=== PATIENT | female | born 1970 | race Caucasian/White ===

== ENCOUNTER → 2021-08-02 10:16 | Outpatient (BNVA) | payer OTHER, SELFPAY | PROVIDERS: PCP Internal Medicine; Visit Provider Physician Assistant ==

== ENCOUNTER → 2021-08-09 09:00 | Outpatient (REF) | payer OTHER, SELFPAY ==
--- NOTE | ~2021-08-09 | NM_ITS ---
Exercise Myocardial perfusion study Indication: Shortness of breath evaluate for myocardial ischemia Technique: The patient was brought in for an exercise perfusion study on 08/09/2021.. Patient performed exercise as per [place] protocol and was injected 35 mCi of sestamibi was given intravenously one target HR was achieved. Images were obtained using the SPECT gamma camera interlaced with the gating device. Images were obtained in supine position. Resting perfusion study was performed on 08/11/2021. Patient was administered 35 mCi of sestamibi intravenously at rest. Images were then obtained in supine position. Images obtained with and without CT attenuation. Total DLP 125 mGy-cm. Images were processed with the software and compared side to side in short axis, horizontal long axis and vertical long axis views. Findings: Reviewing the raw tomographic images there appears shifting breast attenuation shadow on non attenuated images when compared between rest and stress perfusion study The stress perfusion study showed non attenuated images show mildly to moderately reduced uptake in the anterior wall, the anterolateral wall as well as distal lateral wall of the LV myocardium. Other segments of LV myocardium is normal uptake. Attenuation corrected images show mildly reduced uptake in the apex. The gated study shows normal LV systolic function with calculated LVEF of 58%. LV cavity is normal in size. The gated study shows normal systolic wall thickening and contraction of all segments. There is no transient ischemic dilation. Resting study shows attenuated corrected images show mildly reduced uptake in the apex of the LV myocardium.. Gating at rest reveals normal systolic wall motion with ejection fraction at 55%. The findings are consistent with [no evidence of ischemia on attenuated corrected images. NM/NM jazmyn perf SPECT rest & str Impression: 1. Normal myocardial perfusion 2. Gated LVEF is 58% 3. Transient ischemic dilatation not present Stress EKG is nondiagnostic for ischemia
--- NOTE | 2021-08-09 09:21 | CA_ITS ---
Acquisition Time: 2021-08-09 09:36:36 Total Exercise Time: 00:05:13 Test Indications: Chest Pain Medications: PANTOPRAZOLE ATORVASTATIN ASA Protocol: VERNA Max HR: 157 BPM 92% of Pred: 169 BPM Max BP: 182/070 mmHG Max Work Load: 7.0 METS Exercise stress test with exercise 5 min 13 sec of Verna protocol, with fatigue and mild to moderate shortness of breath, no chest discomfort, without arrythmia, with normotensive response to exercise, with nondiagnostic EKG for ischemia due to baseline ST/ T wave abnormality. Nuclear images pending. Test reviewed with Dr Boudreaux. Referred By: Chaim Alarcon Overread By: DEVORAH RICH
== END ==
LOC: HO.CARD 09:00
PROVIDERS: Visit Provider Physician Assistant Medical
DX: R06.02 Shortness of breath (principal)
CPT/HCPCS: 78452; 93017; A9500

== ENCOUNTER → 2021-09-02 08:13 | Outpatient (BNVA) | payer OTHER, SELFPAY | PROVIDERS: PCP Internal Medicine; Visit Provider Surgery | DX: Z13.89 Encounter for screening for other disorder (principal) ==

== ENCOUNTER 2023-01-23 13:29 | Outpatient (AMB) | payer OTHER, SELFPAY ==
--- NOTE | 2023-01-23 13:31 | A.OFFVIS_ITS ---
Intake VS Expanded 01/23/23 13:33 Height 4 ft 11 in Weight 218 lb 9.6 oz BMI 44.1 BP 146/70 H Blood Pressure Location Rt brachial Blood Pressure Position Sitting Pulse 90 Pulse Source Pulse Oximeter Temp 97.4 F Temperature Source Temporal Artery Scan Pulse Oximetry 98 Oxygen Delivery Method Room Air Body Fat 100.4 Body Fat Percentage 45.9 Free Fat Mass 118.2 Muscle Mass 112.2 Visceral Mass 15.0 Water Mass 84.0 BMR 1,661 Intake Visit Reasons: (OV) Re-Est [facility] Assistant Manager/Embalmer Required: Yes Assistant Manager/Embalmer Name: office cmi Allergies lorazepam [From Ativan] Allergy (Severe, Verified 09/02/21 10:49) Unconscious Medication List - Last Reconciled 01/23/23 by TAZ Ziegler albuterol sulfate 90 mcg/actuation 0 mcg inhalation ibuprofen 800 mg PO TID pantoprazole 40 mg PO DAILY HPI HPI Comments History of Present Illness Details Pt is here to re-start the [facility] Weight Management surgical weight loss program. She was seen only once in the [facility] clinic 09/02/21 and her weight at that time was 206.2 pounds with a BMI of 41. She was unable to continue in the program at that time due to having to move and multiple stresses that have since improved. Her goal is to lose weight and achieve a healthy lifestyle. Current weight is 218.6 pounds with a BMI of 44.2. She has tried multiple methods of weight loss including fad diets without permanent results. Works at [employer]. She wakes at:?1 am, and goes to bed at?9 pm. Dinner is at 6pm. Breakfast: gatorade AM snack: green tea, bagel w cream cheese Lunch: fast food summer strawberry salad PM snack: sandwich Dinner: nothing else After dinner: none Other snacks: none Liquids: 48-64 oz water, 40 oz straw-watermelon green tea from , Alcohol/marijuana/tobacco intake: none Exercise: none, belongs to [employer] in [facility] Medical History Asthma Foot pain GERD (gastroesophageal reflux disease) Morbid obesity Surgical History Hx of tubal ligation Family History Mother Hypertension Father Diabetes Stroke Sister No problems noted. Sister Cancer Diabetes Brother Fibromyalgia Sister No problems noted. Daughter No problems noted. Daughter Cancer Hypertension Heart problem Kidney problem Son No problems noted. Social History Alcohol intake: never Patient Tobacco Use Status: Never used Tobacco Review of Systems Const All systems reviewed & are unremarkable except as noted in HPI and below Physical Exam Const General: cooperative, healthy appearing and no acute distress Orientation/consciousness: patient oriented x3 HEENT Head: Yes normal to inspection Ears: hearing grossly normal bilaterally General nose exam: Normal external nose present Face and sinus: Yes normal facial exam Eyes General: appearance normal, both eyes and all related structures Resp Effort & Inspection: normal respiratory effort Auscultation: clear to auscultation bilaterally Cardio Rate: regular rate Rhythm: regular rhythm Heart sounds: S1 normal heart sound present and S2 normal heart sound present GI Inspection: Yes normal to inspection, No distended and Yes obesity Palpation (GI): Soft to palpation, nontender and no guarding Auscultation: normal bowel sounds Skin General skin exam: no rashes or lesions noted Neuro General: patient oriented x3 Extrem General: No edema Psych Appearance: grossly normal Mental Status: mental status grossly normal Speech and movement: Normal speech and movement present Affect: normal affect Attitude: cooperative Assessment & Plan Assessment & Plan (1) Morbid obesity: Code(s): E66.01 - Morbid (severe) obesity due to excess calories Plan: This is a?52 yo female who will re-start our SWL program to prepare for bariatric surgery.? Blood work, h pylori , CXR, ECG, Abd US and UGI have been ordered. She is being scheduled for RD and BH initial consultations. She will start SWL classes and watch the first three videos before her next appointment. ? Awakening at 1 am and going to bed at 9 pm ? Purchase body composition analyzer scale (Janette bahena or Arjun recommended) and check weight weekly. The best time to do this is first thing in the morning after going to the bathroom. 1. Nutritional counseling: Be sure to careful read the number of scoops per shake Start with 3 Orgain shakes ([employer], [employer], [employer]), First shake, (1 and 1/2 scoop in 8 oz low fat unsweetened almond milk or water) at 2am-4am, Second shake (1 scoop in 8 oz unsweetened almond milk or water) at 6am-8am 1 protein bar (Fulfilbars at [employer], [employer], or [employer]) at 10am-12pm. Another shake with 1 scoop in 8 oz unsweetened almond milk at 2pm-4pm. Dinner at 6pm (8 forks of protein and 8 forks of salad/vegetables). Meal to include lean meat (beef, fish, pork, turkey, chicken), cooked vegetables or a salad with olive oil and/or fruits (berries, pears, apples, kiwi). Avoid salt, breads, potatoes, rice, pasta, desserts. Try to drink 64 oz of water daily and avoid soda and juices. ?2. Each shake would be drunk slowly, like coffee in a period of 2 hours. ?3. Cut each bar in 4 pieces and eat each piece in 30 min ?to make each bar last 2 hours. ?4. I emphasized the importance of measuring accurately the food portion and measure it carefully when serving the food on the plate ?5. The meal portions include 8 full-size forks of meat and 8 full-size forks of salad. You always eat the meat portion but you can replace up to half of the forks of salad/vegetables with rice, potatoes or pasta, or a fruit ?if you like. The less you do it the better weight loss will be. ?6. One full-size fork is what can be scooped on the fork without falling aside and not what can be bit with the fork. Use regular forks like those you find in a typical restaurant. ?7.? Please send me weight measurements as soon as possible and then once a week. Always include your diet and exercise plan. Alternatively come weekly at the office for weight checks and send me the measurements. ?8. Exercise counseling: Begin by watching a stretching for beginners video. Start slowly and begin to stretch your muscles. You should do this before and after each exercise session to prevent injury. Please continue to go to [facility] gym near your home. Ask the supply chain manager or one of the trainers how to use the machines if you are unfamiliar with them. Start elliptical with a resistan ce of 2. Increase resistance by 1 every 3 min to your most comfortable resistance with a max resistance of 8. Reduce the resistance by 1 every 3 minutes back down to 2 and repeat cycles for 300 calories. Alternatively, start treadmill with a speed of 3.0 and incline of 0, increasing incline by 1 every 3 minutes to the highest comfortable level (max 6 for now) then decrease in the same fashion. Repeat process to a goal of 300 calories. Goal of 2000 calories burned or more weekly. You may also consider use of the stationary bike. The easiest would be to chose the fat-burn or interval training program on the machine and do this until you reach the 300 calorie goal. Alternatively, you can manually adjust the resistance in a similar fashion as mentioned above, (resistance of 2-8 with a goal speed of 12 mph). Tracking calories is essential. 9. Alternatively start walking outside daily, tracking calories with a goal of 300 calories per day, daily. You can download the susi Swrve which can track your time, distance and calories while walking outside. You press start in the susi when you start and then stop when you are finished. 10.? It is important to communicate by text weekly your weight and if you are having any problems with the plans 11. Please get labs, EKG and chest X-Ray within 1 week. 12. Discussed and answered all questions regarding?obtained consent to participate in the [facility]?Registry. 13. Please follow the diet plan exactly, without any change. If you do not like something about the plan or you feel hungry, you need to communicate with me so I can help you revise the plan. You should not change the plan yourself. Text me at [phone] 14. Goal is to lose at least 12 pounds in the first month 15. Goal is to lose 10% of your weight before surgery, which is about 22 lbs. Ultimate weight goal: 196 lbs before surgery Patient is morbidly obese and is not considered stable at this time.?I spent a total of 70 minutes reviewing/updating records, examining the patient and counseling the patient on weight management as detailed above. Orders: Orders Vitamin B12 and Folate Today E66.01 - Morbid (severe) obesity due to excess calories Comprehensive Met. Panel Today E66.01 - Morbid (severe) obesity due to excess calories C Reactive Protein Today E66.01 - Morbid (severe) obesity due to excess calories Ferritin Today E66.01 - Morbid (severe) obesity due to excess calories Hemoglobin A1c Today E66.01 - Morbid (severe) obesity due to excess calories Insulin Today E66.01 - Morbid (severe) obesity due to excess calories IRON PROFILE Today E66.01 - Morbid (severe) obesity due to excess calories Lipid Panel Today E66.01 - Morbid (severe) obesity due to excess calories PTHI Today E66.01 - Morbid (severe) obesity due to excess calories TSH reflex Free T4 Today E66.01 - Morbid (severe) obesity due to excess calories Vitamin A Today E66.01 - Morbid (severe) obesity due to excess calories Vitamin B1 Today E66.01 - Morbid (severe) obesity due to excess calories Vitamin D 25-OH Total Today E66.01 - Morbid (severe) obesity due to excess calories Zinc Today E66.01 - Morbid (severe) obesity due to excess calories ECG 12 lead EKG Today E66.01 - Morbid (severe) obesity due to excess calories FL upper GI w air Today E66.01 - Morbid (severe) obesity due to excess calories Complete Blood Count Auto Diff Today E66.01 - Morbid (severe) obesity due to excess calories H Pylori Breath Test Today E66.01 - Morbid (severe) obesity due to excess calories US abdomen comp w elastography Today E66.01 - Morbid (severe) obesity due to excess calories XR chest 2V Today E66.01 - Morbid (severe) obesity due to excess calories Referrals Behavioral Health Referral E66.01 - Morbid (severe) obesity due to excess calories Nutrition/Dietitian Referral E66.01 - Morbid (severe) obesity due to excess calories Coding Level of Care Code Est Pt Level 5 (72944) Diagnoses Morbid obesity E66.01 Time Spent (min) 70
[2023-01-23 13:33] VITALS: BP 146/70; PULSE 90; TEMP 36.3; O2SAT 98; BMI 44.1
== END 2023-01-23 14:23 | disposition home or self-care (01) ==
PROVIDERS: PCP Internal Medicine; Visit Provider Physician Assistant Surgical
DX: E66.01 Morbid (severe) obesity due to excess calories (principal); Z68.41 Body mass index [BMI] 40.0-44.9, adult
CPT/HCPCS: 99215

== ENCOUNTER → 2023-01-23 13:29 | Outpatient (BNVA) | payer OTHER, SELFPAY | PROVIDERS: PCP Internal Medicine; Visit Provider Physician Assistant Surgical ==

== ENCOUNTER 2023-02-12 10:18 | Outpatient (AMB) | payer OTHER, SELFPAY ==
--- NOTE | 2023-02-12 10:03 | MHC.AMNUTRGE ---
Intake Intake Visit Reasons: (TV) Initial Nutrition SWL Concrete Finishing Machine Operator Required: Yes Concrete Finishing Machine Operator Name: Cedric [id number] Information Interpreted: non-clinical & clinical Allergies lorazepam [From Ativan] Allergy (Severe, Verified 09/02/21 10:49) Unconscious HPI Nutrition Presentation Details Todays wildlife policy professional was not thorough with interpretation Reason for consult elevated BMI Diet Assmnt Details 2 shakes - orgain powder 2 scoops 2 bars 1 meal protein, vegetables, portions not clear due to poor interpretation Exercise: walking outside , only sometimes, not sure how often , 30 minutes - 1 hour SWL online classes: none, pt states she was unaware Dietary counseling reduction Diagnosis Nutrition problem #1 overweight/obesity As related to (etiology) #1 excess energy intake and physical inactivity As evidenced by (sign/symptom) #1 high BMI Monitoring/Goals Nutrition problem monitoring total energy intake, level of knowledge/skill, total PRO intake, total CHO intake and weight Outcome progress not met Learning/Education Readiness to learn fair Stages of change action Most Recent Diabetes Results: No Data to Display [facility] Medical History Asthma Foot pain GERD (gastroesophageal reflux disease) Morbid obesity Surgical History Hx of tubal ligation Family History Mother Hypertension Father Diabetes Stroke Sister No problems noted. Sister Cancer Diabetes Brother Fibromyalgia Sister No problems noted. Daughter No problems noted. Daughter Cancer Hypertension Heart problem Kidney problem Son No problems noted. Social History Alcohol intake: never Patient Tobacco Use Status: Never used Tobacco Assessment & Plan Assessment & Plan (1) Morbid obesity: Code(s): E66.01 - Morbid (severe) obesity due to excess calories Patient Instructions: will follow up again once she completes her online classes. F/u in 5 weeks Telehealth Telehealth Location of provider rendering services: practice address Location of patient: address on file Patient Identification confirmed using: Name, : Yes Telehealth method: voice only Patient verbally consented to treatment: Yes Patient verbally consented to billing insurance company: Yes Patient informed of any privacy concerns related to visit: Yes Minutes spent on Phone/Video with Pt.: 30 Coding Level of Care Code Nutr Indiv Intake (04797) Diagnoses Morbid obesity E66.01 Time Spent (min) 30
== END 2023-02-12 10:23 | disposition home or self-care (01) ==
LOC: HO.HBS 10:18
PROVIDERS: PCP Internal Medicine; Visit Provider Dietitian, Registered
DX: E66.01 Morbid (severe) obesity due to excess calories (principal)

== ENCOUNTER → 2023-02-12 10:18 | Outpatient (BNVA) | payer OTHER, SELFPAY | PROVIDERS: PCP Internal Medicine; Visit Provider Dietitian, Registered | DX: E66.01 Morbid (severe) obesity due to excess calories (principal); Z71.3 Dietary counseling and surveillance | CPT/HCPCS: 97802 ==

== ENCOUNTER 2023-04-19 16:34 | Outpatient (REF) | payer OTHER, SELFPAY ==
--- NOTE | ~2023-04-19 | XR_ITS ---
EXAMINATION: XR CHEST CLINICAL INFORMATION: Obesity COMPARISON: None available. TECHNIQUE: 2 views of the chest were obtained. FINDINGS: No significant abnormality is noted involving the heart, lungs, mediastinum, bony thorax or soft tissues. Degenerative changes of the spine. XR/XR chest 2V IMPRESSION: No evidence for acute disease in the chest.
== END 2023-04-19 16:35 | disposition home or self-care (01) ==
LOC: HO.XRAY 16:34
PROVIDERS: Visit Provider Physician Assistant Surgical
DX: E66.01 Morbid (severe) obesity due to excess calories (principal)
CPT/HCPCS: 71046

== ENCOUNTER 2023-04-26 08:42 | Outpatient (REF) | payer OTHER, SELFPAY ==
--- NOTE | ~2023-04-26 | US_ITS ---
EXAMINATION: US COMPLETE ABDOMEN WITH LIVER ELASTOGRAPHY CLINICAL INFORMATION: Morbid obesity. COMPARISON: None available. TECHNIQUE: Real-time imaging of the abdominal viscera. Noninvasive ultrasound liver fibrosis assessment is performed using Nati ElastPQ point quantification shear wave elastography (2D-SWE) with a C5-2 MHz transducer. Multiple elastography samples are obtained. FINDINGS: PANCREAS: Normal. The visualized pancreatic head and body are normal in appearance. The remainder of the pancreas is obscured from visualization by the overlying bowel gas. ABDOMINAL AORTA: The proximal, middle, and distal aortic segments are normal in caliber. INFERIOR VENA CAVA: Visualized portions are normal. LIVER: The liver demonstrates normal size, contour and generally increased echogenicity. No focal lesion or intrahepatic biliary duct dilatation. The right lobe measures 16.2 cm in length. The left lobe measures 11.3 cm in length. Portal flow is towards the liver (hepatopetal). Shear wave liver elastography median stiffness is 1.21 m/s (reference: normal median stiffness is 1.3 m/s or less). IQR/median stiffness to assess sampling precision is 0.12 (reference: good quality data set is IQR/median stiffness of 0.15 or less). GALLBLADDER: Normal. The gallbladder is physiologically distended without evidence of stones, sludge, polyps, wall thickening or pericholecystic fluid. COMMON BILE DUCT: Normal in caliber measuring 0.6 cm in diameter. RIGHT KIDNEY: Normal. There is mild pelviectasis, without charan hydronephrosis. No renal calculi or focal parenchymal lesions. The kidney measures 10.7 cm in maximum dimension. LEFT KIDNEY: Normal. There is mild pelviectasis, without charan hydronephrosis. No renal calculi or focal parenchymal lesions. The kidney measures 10.2 cm in maximum dimension. SPLEEN: Normal. The spleen measures 9.9 cm in maximum dimension. FREE FLUID: None. US/US abdomen comp w elastography IMPRESSION: 1. There is generalized increase in hepatic echotexture, consistent with fatty infiltration or hepatocellular disease. Please correlate clinically. No focal hepatic mass or intrahepatic biliary dilatation is seen. 2. Liver elastography: Measurements are consistent with a high probability of normal liver stiffness. REFERENCE: Society of Radiologists in Ultrasound Liver Stiffness Thresholds (2020): LIVER STIFFNESS THRESHOLDS: *Liver Stiffness equal or less than 1.3 m/s: High probability of being normal. *Liver Stiffness less than 1.7 m/s: In the absence of other known clinical signs, rules out compensated advanced chronic liver disease. *Liver Stiffness 1.7-2.1 m/s: Suggestive of compensated advanced chronic liver disease but need further test for confirmation. *Liver Stiffness over 2.1 m/s: Rules in compensated advanced chronic liver disease. *Liver Stiffness over 2.4 m/s: Suggestive of clinically significant portal hypertension. QUALITY OF DATA SET: *IQR/Median value equal or less than 0.15 implies a quality data set. *IQR/Median value over 0.15 implies a poor quality data set. SIGNIFICANT CHANGE FROM PRIOR EXAM: Significant change if liver stiffness measurement is 10% or greater from prior exam. OTHER CONSIDERATIONS: The stage of liver fibrosis may be overestimated in the setting of acute hepatitis, liver inflammation, elevated liver function tests, hepatic vascular congestion, obstructive cholestasis, non-fasting state, and infiltrative diseases such as amyloidosis and lymphoma. In some patients with NAFLD, the liver stiffness thresholds for compensated advanced chronic liver disease may be lower. In causes other than viral hepatitis and NAFLD, liver stiffness thresholds are not well established.
[2023-04-26 10:01] LABS: MANUAL DIFF FLAG NO
[2023-04-26 10:52] LABS: Basophils Absolute Auto 0.1 X10*3/uL (0.0-0.2); Basophils Percent Auto 0.9 % (0-2); Eosinophils Absolute Auto 0.2 X10*3/uL (0.0-0.4); Eosinophils Percent Auto 4.4 % (0-4); Hematocrit 38.6 % (37.0-47.0); Hemoglobin 12.3 g/dl (12.0-16.0); Imm Gran Abs Auto 0.01 X10*3/uL (0.00-0.03); Imm Gran Pct Auto 0.2 % (0.0-0.4); Lymphocytes Absolute Auto 1.7 X10*3/uL (1.2-4.9); Lymphocytes Percent Auto 30.2 % (20-40); Mean Corpuscular HGB Conc 31.9 g/dl (31.0-35.0); Mean Corpuscular Hemoglobin 28.1 pg (27.0-33.0); Mean Corpuscular Volume 88.1 fL (80.0-98.0); Mean Platelet Volume 10.1 fL (9.4-12.3); Monocytes Absolute Auto 0.4 X10*3/uL (0.1-1.2); Monocytes Percent Auto 6.6 % (2-11); Neutrophils Absolute Auto 3.2 x10*3/uL (2.0-8.3); Neutrophils Percent Auto 57.7 % (45-73); Platelet Count 332 X10*3/uL (160-400); Red Blood Count 4.38 X10*6/uL (4.20-5.50); Red Cell Distribution Width 13.2 % (11.0-16.0); White Blood Count 5.5 X10*3/uL (4.8-10.8)
[2023-04-26 10:56] LABS: Estimated Average Glucose 111 mg/dL; Hemoglobin A1c % 5.5 % (<6.0)
[2023-04-26 11:27] LABS: Alanine Aminotransferase 10 U/L (0-31); Albumin Level 3.8 g/dL (3.5-5.0); Alkaline Phosphatase 67 U/L (39-117); Anion Gap 11 (12-20); Aspartate Amino Transferase 15 U/L (5-31); Bilirubin Total 0.2 mg/dL (0.0-1.0); Blood Urea Nitrogen 15 mg/dL (9-16); C Reactive Protein 0.26 mg/dL (< or = 0.50); Carbon Dioxide 26 mmol/L (22-29); Chloride 109 mmol/L (96-108); Cholesterol 189 mg/dL (<200); Estimated Glomerular Filt Rate > 60; Glucose Random 88 mg/dL (60-115); HDL Cholesterol 57 mg/dL (>40); Iron 48 mcg/dL (30-160); LDL Cholesterol Calculated 123 mg/dL (<100); Percent Iron Saturation 14 % (15-50); Potassium 3.8 mmol/L (3.3-5.1); Sodium 142 mmol/L (135-145); Total Iron Binding Capacity 342 mcg/dL (228-428); Total Protein 7.1 g/dL (6.5-8.0); Triglycerides 47 mg/dL (<150); Unsaturated Iron Binding 294 ug/dL
[2023-04-26 11:50] LABS: Vitamin B12 577 pg/mL (200-900)
[2023-04-26 11:53] LABS: Ferritin 13 ng/mL (10-250); Insulin 7 uU/mL (2-29); TSH reflex Free T4 0.89 uIU/mL (0.32-4.0); Vitamin D 25-OH Total 13.7 ng/mL (>30)
[2023-04-28 17:28] LABS: Zinc 64 mcg/dL (60-130)
[2023-04-30 17:17] LABS: Calcium (PTHI) 9.6 mg/dL (8.6-10.4); PTHI 56 pg/mL (16-77)
[2023-05-02 12:53] LABS: Vitamin B1 9 nmol/L (8-30)
[2023-05-03 05:03] LABS: Vitamin A 42 mcg/dL (38-98)
== END 2023-04-26 08:43 | disposition home or self-care (01) ==
LOC: HO.US 08:42
PROVIDERS: PCP Internal Medicine; Visit Provider Physician Assistant Surgical
DX: E66.01 Morbid (severe) obesity due to excess calories (principal)
CPT/HCPCS: 36415; 76705; 76981; 80053; 80061; 82306; 82607; 82728; 82746; 83036; 83525; 83540; 83970; 84425; 84443; 84590; 84630; 85025; 86140

== ENCOUNTER 2023-05-03 11:00 | Outpatient (AMB) | payer OTHER, SELFPAY ==
--- NOTE | 2023-05-03 11:14 | A.OFFWM_ITS ---
Intake Intake Visit Reasons: VIDEO Intake Allergies lorazepam [From Ativan] Allergy (Severe, Verified 09/02/21 10:49) Unconscious [facility] Medical History Asthma Foot pain GERD (gastroesophageal reflux disease) Morbid obesity Surgical History Hx of tubal ligation Family History Mother Hypertension Father Diabetes Stroke Sister No problems noted. Sister Cancer Diabetes Brother Fibromyalgia Sister No problems noted. Daughter No problems noted. Daughter Cancer Hypertension Heart problem Kidney problem Son No problems noted. Social History Alcohol intake: never Patient Tobacco Use Status: Never used Tobacco Behavioral Health Assessment Weight Management Therapy Therapy Notes Details PT is a 52 year old female who presents for intake as part of surgical weight-loss program. PT states her interest in bariatric surgery as she has struggle to loss weight for couple years, she wants to be and fell healthy. PT denies ever been in formal counseling due to mental health illness, however attended therapy for a short period of time when started divorce process. She has never been inpatient and/or in crisis for mental health and denies any safety concerns around SI and/or self-other harm, also there is no history of substance use reported. However, patient reports marked psychosocial stressors causing her high stress levels, such as financial strain and living situation, she also has no supports and is struggling to follow meal plan as she's not tolerating shakes and has no permanent place to live; in the upcoming days the patient is expected to stabilize her living situation. PT not cleared today, we will meet again in about a month. Presenting Concerns Referral Source P Provider. PT sees Garry Ayala Reason for referral Completion of behavioral health assessment as part of process for weight-loss surgery. Precipitating Event Obesity. Living Situation Current Living Situation Friend's Home, Relative's/Guardian's Dustin and Other Satisfied with current living situation? No Comments PT has been homeless for over a year. She sleeps at her mother's home, with friends or sleeps on her car. She got approved for an apartment and will move this weekend. Food/Weight/Diet Expectations of change Initial goal is to lose 10% of your weight before surgery, which is about 22 lbs. Ultimate weight goal: 196 lbs. before surgery History/Relationship with food PT reports that the past years her living situation is not allowing her to cook her own meals and has to eat out a lot. She used to eat a lot of carbs and multiple carbs in a meal. But she is not used to eat big portions and/or having steady meals. History/Relationship with weight In last 10 years her highest weight ahs been 275Lbs (2016), and lowest 193Lbs 3 years ago. History/Relationship with dieting Has tried other weight management programs but surgery has been denied. Never tried diets. Had a gym membership and was doing CrossFit. Binge Eating Do you frequently eat large amounts of food in short periods of time, not feeling physically hungry? No Do you feel out of control when you eat a large amount of food in a short period of time? No Do you eat large amounts of food rapidly and typically alone? No Night Eating Do you wake up at least once during the night to eat? No If you wake up in the night, do you find that it is necessary to eat something in order to fall back asleep? No Do you have little or no appetite in the morning and feel very hungry in the evening, often overeating between dinner and when you go to bed? No Social History Family history and relationship Pt is 1 year ago. Was for 33 years. She has 3 adult children, and 12 grandkids. Parents alive, 2 siblings , 2 siblings alive. Pt reports strain family relationships. Parental/Familial dialer obligations None. Developmental history and status None reported. Social support A friend. Community support None. Jewish/Spirituality Pentecost, attends hoahaoism on Sundays. Cultural/Ethnic information Pt is from [place]. Lives in the for over 25 years. Legal Involvement and History Current or historical involvement with the legal system? None reported. Education Highest grade completed Hs diploma. 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 Preferred learning style Auditory, Verbal, Written, Learn by doing and Visual Currently enrolled in educational program? No Interested in further educational program? 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 ) Wants help to find employment? No Meaningful activities Family activities. Financial Situation Describe current financial situation Occasional struggle Financial assistance? None Service Service? No Mental Health and Addiction Treatment Current/Past substance abuse? No Current/Past addictive behavior concerns? No Psychiatric history PT was in counseling about 4 years ago when started having marriage issues. Never been hospitalized and/or in MH crisis, Denies any past/recent/current concerns with SI, and or SA, also denies any safety concerns with self-harm/other-harm. Medical and Physical Health Summary Additional Medical History not covered in history None reported Sexual History concerns None reported Physical exam in the last year? Yes Pain Screening Current pain? Yes (Ankle pain. Referred to a city editor.) Pain in the last few months? No Medications Is the patient compliant with medications? Yes Does the patient have Comer Guardian in place? Not applicable Does the patient use complimentary health approaches? No Trauma/Abuse History History of trauma? No Questionnaires Binge Eating Scale Group 1 A. I don't feel self-conscious about my wt. or body size when I'm with others. B. I feel concerned about how I look to others, but it normally does not make me fell disappointed with myself C. I do get self-conscious about my appearance and wt. which makes me feel disappointed in myself. D. I feel very self-conscious about my wt. and frequently I feel intense shame and disgust for myself. I try to avoid social contacts because of my self-consci ousness. Response Group 1: B Group 2 A. I don't have any difficulty eating slowly in the proper manner. B. Although I seem to gobble down foods, I don't end up feeling stuffed because of eating to much. C. At times, I tend to eat quickly and then, I feel uncomfortably full af terwards. D. I have the habit of bolting down my food, without really chewing it. When this happens I usually feel uncomfortably stuffed because I've eaten to much. Response Group 2: A Group 3 A. I feel capable to control my eating urges when I want to. B. I feel like I have failed to control my eating more than the average person. C. I feel utterly helpless when it comes to feeling in control of my eating urges. D. Because I feel so helpless about controlling my eating I have become very desperate about trying to get control. Response Group 3: A Group 4 A. I don't have the habit of eating when I'm bored. B. I sometimes eat when I'm bored, but often I'm able to get busy and get my mind off food. C. I have a regular habit of eating when I'm bored, but occasionally, I can use some other activity to get my mind off eating. D. I have a strong habit of eating when I'm bored. Nothing seems to help me breath the habit. Response Group 4: B Group 5 A. I'm usually physically hungry when I eat something. B. Occasionally, I eat something on impulse even though I really am not hungry. C. I have the regular habit of eating foods, that I might not really enjoy, to satisfy a hungry feeling even though physically, I don't need the food. D. Although I'm not physically hungry, I get a hungry feeling in my mouth that only seems to be satisfied when I eat a food, like sandwich, that fills my mouth. Sometimes, when I eat the food to satisfy my mouth hunger, I then spit the food out so I won't gain weight. Response Group 5: B Group 6 A. I don't feel any guilt or self-hate after I overeat. B. After I overeat, occasionally I feel guilt or self-hate. C. Almost all the time I experience strong guilt or self-hate after I overeat. Response Group 6: B Group 7 A. I don't lose total control of my eating when dieting even after periods when I overeat. B. Sometimes when I eat a forbidden food on a diet, I feel like I blew it and eat even more. C. Frequently, I have the habit of saying to myself, I've blown it now, why not go all the way, when I overeat on a diet. When that happens I eat more. D. I have a regular habit of starting a strict diets for myself but I break the diets by going on an eating binge. My life seems to be either a feast or famine. Response Group 7: D Group 8 A. I rarely eat so much food that I feel uncomfortably stuffed afterwards. B. Usually about once a month, I each such a quantity of food, I end up feeling very stuffed. C. I have regular periods during the month when I eat large amounts of food, either at mealtime or at snacks. D. I eat so much food that I regularly feel quite uncomfortable after eating and sometimes a bit nauseous. Response Group 8: B Group 9 A. My level of calorie intake does not go up very high or go down very low on a regular basis. B. Sometimes after I overeat, I will try to reduce my caloric intake to almost nothing to compensate for the excess calories I've eaten. C. I have a regular habit of overeating during the night. It seems that my routine is not to be hungry in the morning but overeat in the evening. D. In my adult years, I have had week-long periods where I practically starve myself. This follows periods when I overeat. It seems I live a life of either feast or famine. Response Group 9: C Group 10 A. I usually am able to stop eating when I want to. I know when enough is enough. B. Every so often, I experience a compulsion to eat which I can't seem to control. C. Frequently, I experience strong urges to eat which I seem unable to control, but at other times I can control my eating urges. D. I feel incapable of controlling urges to eat. I have a fear of not being able to stop eating voluntarily. Response Group 10: A Group 11 A. I don't have any problem stopping eating when I feel full. B. I usually can stop eating when I feel full but occasionally overeat leaving me feeling uncomfortably stuffed. C. I have a problem stopping eating once I start and usually I feel uncomfortably stuffed after I eat a meal. D. Because I have a problem not being able to stop eating when I want, I sometimes have to induce vomiting to relieve my stuffed feeling. Response Group 11: A Group 12 A. I seem to eat just as much when I'm with others, Family social gatherings as when I'm by myself. B. Sometimes, when I'm with other persons, I don't eat as much as I want to eat because I'm self-conscious about my eating. C. Frequently, I eat only a small amount of food when others are present, because I'm very embarrassed about my eating. D. I feel so ashamed about overeating that I pick times to overeat when I know no one will see me. I feel like a closet eater. Response Group 12: B Group 13 A. I eat three meals a day with only an occasional between meal snack. B. I eat 3 meals a day, but I also normally snack between meals. C. When I am snacking heavily, I get in the habit of skipping regular meals. D. There are regular periods when I seem to be continually eating, with no planned meals. Response Group 13: C Group 14 A. I don't think much about trying to control unwanted eating urges. B. At least some of the time, I feel my thoughts are pre-occupied with trying to control my eating urges. C. I feel that frequently I spend much time thinking about how much I ate or about trying not to eat anymore. D. It seems to me that most of my waking hours are pre-occupied by thoughts about eating or not eating. I feel like I'm constantly struggling not to eat. Response Group 14: C Group 15 A. I don't think about food a great deal. B. I have strong craving for food but they last only for brief periods of time. C. I have days when I can't seem to think about anything else but food. D. Most of my days seem to be pre-occupied with thoughts about food. I feel like I live to eat. Response Group 15: A Group 16 A. I usually know whether or not I'm physically hungry. I take the right portion of food to satisfy me. B. Occasionally, I feel uncertain about knowing whether or not I'm physically hungry. A these times it's hard to know how much food I should take to satisfy me. C. Even though I might know how many calories I should eat, I don't have any idea what is a normal amount of food for me. Response Group 16: C Binge Eating Score: 17 Score less than 17 Minimal Risk Score between 18-26 Moderate Risk Score between 27-46 High Risk Assessment & Plan Assessment & Plan (1) Adjustment disorder: Code(s): F43.20 - Adjustment disorder, unspecified Plan PT is not cleared today, we will meet again in 4 weeks on 05/28/23 at 10:45am via telehealth. We will administer the PHQ-9 and assess for ongoing psychosocial stressors impacting her. Telehealth Telehealth Location of provider rendering services: other Location of patient: other Patient Identification confirmed using: Name, : Yes Telehealth method: video Patient verbally consented to treatment: Yes Patient verbally consented to billing insurance company: Yes Patient informed of any privacy concerns related to visit: No Minutes spent on Phone/Video with Pt.: 60 Coding Level of Care Code New Pt Tele Psy Diag Eval (24016) Patient Type New Diagnoses Adjustment disorder F43.20 Time Spent (min) 60
== END 2023-05-03 12:00 | disposition home or self-care (01) ==
LOC: HO.HBST 11:17
PROVIDERS: PCP Internal Medicine; Visit Provider Counselor Mental Health
DX: F43.20 Adjustment disorder, unspecified (principal)
CPT/HCPCS: 90791

== ENCOUNTER → 2023-05-03 11:00 | Outpatient (BNVA) | payer OTHER, SELFPAY | PROVIDERS: PCP Internal Medicine; Visit Provider Counselor Mental Health ==

== ENCOUNTER 2023-05-15 15:21 | Outpatient (AMB) | payer OTHER, SELFPAY ==
--- NOTE | 2023-05-15 15:22 | A.OFFVIS_ITS ---
Intake VS Expanded 05/15/23 15:30 BP 164/78 H Blood Pressure Location Rt brachial Blood Pressure Position Sitting Pulse 100 Pulse Source Pulse Oximeter Temp 97.4 F Temperature Source Temporal Artery Scan Pulse Oximetry 97 Oxygen Delivery Method Room Air Height 4 ft 11 in Weight 216 lb 12.8 oz BMI 43.8 Body Fat % 47.3 Body Fat Mass 102.6 Fat Free Mass 114.2 Visceral Fat Rating 15.0 Body Water % 37.4 Body Water Mass 81.2 Muscle Mass/Score 108.4 Basal Metabolic Rate/Score 1,616 Intake Visit Reasons: (OV) F/U SWL Assembling Fabricator Required: Yes Assembling Fabricator Name: office cmi Allergies lorazepam [From Ativan] Allergy (Severe, Verified 05/15/23 15:27) Unconscious Medication List - Last Reconciled 05/15/23 by TAZ Ziegler albuterol sulfate 90 mcg/actuation 0 mcg inhalation cholecalciferol (vitamin D3) 125 mcg PO DAILY 90 days ibuprofen 800 mg PO TID pantoprazole 40 mg PO DAILY thiamine HCl (vitamin B1) 100 mg PO DAILY 90 days HPI HPI Comments History of Present Illness Details The patient is a pleasant 52 year old female who returns to the clinic for pre-operative surgical weight loss management. They were last seen in the office on 01/23/23, recorded weight at that time was 218.6 pounds, with a BMI of 44.1. Todays weight is 216.8 pounds and BMI is 43.8. There has been a weight loss of 1.8 pounds since initiating the surgical weight loss program on 01/23/23 with a total body weight loss of 0.8 %. Pre op work up completed as follows: SWL classes:? 07/26 BH appts: f/u 05/28/23 ? ? RD appts: needs f/u Labs: 04/26/23-low D H. pylori: not yet done CXR: 04/19/23-nad EKG: not yet done ABD U/S: 04/26/23-fatty liver UGI: missed 04/02/23 The patient reports she has had a lot of things going on over the last three months and she has been homeless, sleeping in her car. The patient does not have a body composition scale. They also have not been communicating weekly. Not doing the shakes, but has been using the protein bar and fruit and food. Current reccomended meal plan includes: 3 Orgain shakes ([employer], [employer], [employer]), First shake, (1 and 1/2 scoop in 8 oz low fat unsweetened almond milk or water) at 2am-4am, Second shake (1 scoop in 8 oz unsweetened almond milk or water) at 6am-8am 1 protein bar (Fulfilbars at [employer], [employer] , or [employer]) at 10am-12pm. Another shake with 1 scoop in 8 oz unsweetened almond milk at 2pm-4pm. Dinner at 6pm (8 forks of protein and 8 forks of salad/vegetables). Drinking 96 oz of water Current exercise plan includes: working 2 jobs. no exercise PFSH Medical History Asthma Foot pain GERD (gastroesophageal reflux disease) Morbid obesity Surgical History Hx of tubal ligation Family History Mother Hypertension Father Diabetes Stroke Sister No problems noted. Sister Cancer Diabetes Brother Fibromyalgia Sister No problems noted. Daughter No problems noted. Daughter Cancer Hypertension Heart problem Kidney problem Son No problems noted. Social History Alcohol intake: never Patient Tobacco Use Status: Never used Tobacco Review of Systems Const All systems reviewed & are unremarkable except as noted in HPI and below Physical Exam Const General: healthy appearing and no acute distress Resp Effort & Inspection: normal respiratory effort Auscultation: clear to auscultation bilaterally Cardio Rate: regular rate Rhythm: regular rhythm GI Auscultation: normal bowel sounds Extrem General: Yes normal to inspection Assessment & Plan Assessment & Plan (1) Morbid obesity: Code(s): E66.01 - Morbid (severe) obesity due to excess calories Plan: Patient needs to withdrawal from the program at this time. She is currently homeless, awaiting housing. She is trying her best and working 2 jobs to make ends meet. She certainly may return to the office at any time in the future when her life becomes more stable and she is able to commit to the program. Coding Level of Care Code Est Pt Level 3 (40499) Diagnoses Morbid obesity E66.01
[2023-05-15 15:30] VITALS: BP 164/78; PULSE 100; TEMP 36.3; O2SAT 97; BMI 43.8
== END 2023-05-15 15:49 | disposition home or self-care (01) ==
PROVIDERS: PCP Internal Medicine; Visit Provider Physician Assistant Surgical
DX: E66.01 Morbid (severe) obesity due to excess calories (principal); Z68.41 Body mass index [BMI] 40.0-44.9, adult
CPT/HCPCS: 99213

== ENCOUNTER → 2023-05-15 15:21 | Outpatient (BNVA) | payer OTHER, SELFPAY | PROVIDERS: PCP Internal Medicine; Visit Provider Physician Assistant Surgical ==

== ENCOUNTER 2024-08-13 13:05 | Outpatient (AMB) | payer OTHER, SELFPAY ==
--- NOTE | 2024-08-13 13:02 | MHC.WMTHER ---
Intake Intake Visit Reasons: VIDEO OP Therapy Allergies lorazepam [From Ativan] Allergy (Severe, Verified 05/15/23 15:27) Unconscious [facility] Medical History Asthma Foot pain GERD (gastroesophageal reflux disease) Morbid obesity Surgical History Hx of tubal ligation Family History Mother Hypertension Father Diabetes Stroke Sister No problems noted. Sister Cancer Diabetes Brother Fibromyalgia Sister No problems noted. Daughter No problems noted. Daughter Cancer Hypertension Heart problem Kidney problem Son No problems noted. Social History Alcohol intake: never Patient Tobacco Use Status: Never used Tobacco Behavioral Health Assessment Weight Management Therapy Therapy Notes Details PT is a 54 year old female who is [place] services [place] [facility] [place], stress-management and resolve current strains in life she's been facing for the past 4 years ago. Today we focused on comprehensive assessment, identifying needs for treatment plan and emotional support was also provided due to her current emotional state. Informed Consent , HIPPA/noticed of private practices, confidentiality, Telehealth, attendance and financial policies were explained. Presenting Concerns Referral Source Self-referred Reason for referral PT reports she has been struggling with the adjustment to her divorce 4 years ago and the financial and housing consequences for her after. Precipitating Event Homelessness and active anxiety/depressive Sx. Living Situation Current Living Situation Friend's Home and Other At risk of losing current housing? Yes Satisfied with current living situation? No Comments PT has been homeless since . She has been renting a room in [place] however, Social History Family history and relationship PT is 3 year ago. Was for 33 years. She has 3 adult children and 12 grandkids. Parents alive, 2 siblings , 2 siblings alive. Pt reports strained family relationships after separation. 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 Developmental history and status None reported. Social support A cousin who lives in [place], A friend. Community support Co-workers. Mormonism/Spirituality Pentecost, has not been attending christianity about 2 months ago. Cultural/Ethnic information PT is from [place]. Lives in the [place] for over [place] years. Legal Involvement and History Current or historical involvement with the legal system? None reported. Education Highest grade completed Hs diploma. Has a certificate in early childhood assistant. Preferred learning style Auditory, Verbal, Written, Learn by doing and Visual Currently enrolled in educational program? No Interested in further educational program? No Educational Interests/Skills PT is dealing with major financial strain, she is in the process of obtaining a second job. 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 ) Wants help to find employment? No Meaningful activities None at this time. Financial Situation Describe current financial situation Financial struggles are a major source of stress Financial assistance? None and Other (Health insurance is under ex- per court mandated. ) Service Service? No Mental Health and Addiction Treatment Current/Past substance abuse? No Current/Past addictive behavior concerns? No Psychiatric history PT was in counseling about 6 years ago when started having marriage issues. Never been hospitalized and/or in MH crisis, Denies any past/recent/current concerns with SI, and or SA, also denies any safety concerns with self-harm/other-harm. Medical and Physical Health Summary Additional Medical History not covered in history None reported Sexual History concerns None reported Physical exam in the last year? Yes Pain Screening Current pain? Yes Pain in the last few months? No Comments PT reports she has arthritis, plantar fascitis. Also has neuropathy and neuralgia. Medications Is the patient compliant with medications? Yes Does the patient have Comer Guardian in place? Not applicable Does the patient use complimentary health approaches? No Trauma/Abuse History History of trauma? Yes (Divorc, financial issues, homelessness. ) Assessment & Plan Assessment & Plan (1) Adjustment disorder with mixed anxiety and depressed mood: Code(s): F43.23 - Adjustment disorder with mixed anxiety and depressed mood Plan PT will return in about 2 weeks and Tx plan will be completed. She has also been scheduled additional visits and she is in need of weekly visits. Next susi: 08/29/2024 at 12pm, in person. Telehealth Telehealth [facility] Location of provider rendering services: other Location of patient: other ([place]) Patient Identification confirmed using: Name, : Yes Telehealth method: video Patient verbally consented to treatment: Yes Patient verbally consented to billing insurance company: Yes Patient informed of any privacy concerns related to visit: Yes Minutes spent on Phone/Video with Pt.: 65 Coding Level of Care Code New Pt Tele Psy Diag Eval (65747) Patient Type New Diagnoses Adjustment disorder with mixed anxiety and depressed mood F43.23 Time Spent (min) 65
--- OUTSIDE RECORDS SUMMARY | 2024-08-13 16:04 | XMS_ITS | Encounter Summary ---
Author Organization [facility] Address [address] [place] [address] Care Team Providers Care Obstetrics Technician Name Role Phone Unknown Primary Care Provider [phone] Encounter Details Date Type Department Care Team (Late st Contact Info) Description 08/22/2021 12:13 PM EST Hospital Encounter [facility] [address] [facility] [place] [address] [place] [id number] Kristian Reyes MD [address] [place] [address] Social History Tobacco Use Types Packs/Day Years Used Date Smoking Tobacco: Never Assessed Sex and Gender Information Value Date Recorded Sex Assigned at Not on file Gender Identity Not on file Sexual Orientation Not on file COVID-19 Exposure Response Date Recorded In the last 10 days, have yo u been in contact with someone who was confirmed or suspected to have Coronavirus/COVID-19? No / Unsure 02/24/2022 2:54 PM EDT documented as of this encounter Plan of Treatment Not on file documented as of this encounter Procedures Procedure Name Priority Date/Time Associated Diagnosis Comments XR CHEST 2 VIEWS Routine 08/22/2021 12:2 0 PM EST Cough documented in this encounter Results * XR Chest 2 views (08/22/2021 12:20 PM EST) Anatomical Region Laterality Modality Chest Computed Radiogr aphy 08/22/2021 12:3 4 PM EST Impressions 08/22/2021 12:34 PM EST Impression: Clear lungs. Narrative 08/22/2021 12:34 PM EST XR CHEST 2 VIEWS: 08/22/2021 12:13 PM CLINICAL HISTORY: cough, hx of pneumonia Comparisons: None available. Technique: PA and Lateral views. 2 views. Findings: The cardiac silhouette is normal in size. The aorta appears tortuous. The lungs are well expanded without focal infiltrates identified. The visualized osseous structures appear unremarkable. Procedure Note Rosalio Saenz MD - 08/22/2021 XR CHEST 2 VIEWS: 08/22/2021 12:13 PM CLINICAL HISTORY: cough, hx of pneumonia Comparisons: None available. Technique: PA and Lateral views. 2 views. Findings: The cardiac silhouette is normal in size. The aorta appears tortuous. Thelungs are well expanded without focal infiltrates identified. Thevisualized osseous structures appear unremarkable. IMPRESSION: Impression: Clear lungs. Angus MCGHEE IMG DIAGNOSTIC IMAGI NG ORDERABLES documented in this encounter Visit Diagnoses Not on filedocumented in this encounter Care Teams Obstetrics Technician Relationship Specialty Start Date End Date Unknown Unknow Provider Address PCP - General 06/18/21 08/07/23 documented as of this encounter
--- OUTSIDE RECORDS SUMMARY | 2024-08-13 16:04 | XMS_ITS | Encounter Summary ---
Author Organization [facility] Address [address] [place] [address] Care Team Providers Care Web Services Developer Name Role Phone Unknown Primary Care Provider [phone] Danitza Soto MD Primary Care Provider [phone] Reason for Visit * Reason Comments Other Courtesy Call/ Phone not accepting calls at this time no msg left-JLS Encounter Details Date Type Department Care Team (Late st Contact Info) Description 09/22/2021 Telephone [facility] [address] [phone] Gabriela Pinto RN [address] [place] [address] Other (Courtesy Call/ Phone not accepting calls at this time no msg left-JLS ) Social History Tobacco Use Types Packs/Day Years Used Date Smoking Tobacco: Never Assessed Sex and Gender Information Value Date Recorded Sex Assigned at Not on file Gender Identity Not on file Sexual Orientation Not on file COVID-19 Exposure Response Date Recorded In the last month, have you been in contact with someone who was confirmed or suspected to have Coronavirus / COVID-19? No / Unsure 09/19/2021 11:04 AM EDT documented as of this encounter Plan of Treatment Not on file documented as of this encounter Visit Diagnoses Not on filedocumented in this encounter Care Teams Web Services Developer Relationship Specialty Start Date End Date Unknown Unknow Provider Address PCP - General 06/18/21 08/07/23 Danitza Soto MD [address] [place] [id number] PCP - General Internal Medicine 08/08/23 documented as of this encounter
--- OUTSIDE RECORDS SUMMARY | 2024-08-13 16:04 | XMS_ITS ---
Author Name [facility] Organization Unknown History of Medication Use Medication Directions Dispensed Refills Start Date End Date Stat us cyclobenzaprine (FLEXERIL) 10 MG tablet Take 1 tablet (10 mg total) by mouth 3 times daily (every 8 hours) as needed for muscle spasms. 09/19/2021 active cephalexin (KEFLEX) 500 MG capsule Take 1 capsule (500 mg total) by mouth 2 (two) times a day. 02/24/2022 active diclofenac (CATAFLAM) 50 MG tablet diclofenac potassium 50 mg tablet TAKE 1 TABLET BY MOUTH 3 TIMES A DAY FOR 5 DAYS NEEDED FOR PAIN active traMADol (ULTRAM) 50 MG tablet tramadol 50 mg tablet active carBAMazepine (TEGretol XR) 100 MG 12 hr tablet carbamazepine ER 100 mg tablet,extended release,12 hr active gabapentin (NEURONTIN) 100 MG capsule gabapentin 100 mg capsule active Problems Problem Status Onset Date Problem Type Date of Resoluti on Source Bilateral foot pain [facility] Acute bilateral low back pain without sciatica [facility]
--- OUTSIDE RECORDS SUMMARY | 2024-08-13 16:04 | XMS_ITS | Clinical Summary ---
Author Organization [facility] Address [address] [place] [address] Care Team Providers Care Pci Security Consultant Name Role Phone Unknown, Primary Care Provider Unavailabl e Allergies Active Allergy Reactions Criticality Noted Date Comments Lorazepam 02/04/2023 Medications Medication Sig Dispensed Refills Start Date End Date Status pantoprazole (PROTONIX) 20 MG tablet Take 1 tablet (20 mg total) by mouth daily. 0 07/03/2012 Active Social History Tobacco Use Types Packs/Day Years Used Date Smoking Tobacco: Never Assessed Sex and Gender Information Value Date Recorded Sex Assigned at Not on file Gender Identity Not on file Sexual Orientation Not on file Job Start Date Occupation Industry Not on file Not on file Not on file Last Filed Vital Signs Vital Sign Reading Time Taken Comments Blood Pressure 158/89 02/13/2023 8:16 AM EDT Pulse 76 02/13/2023 8:16 AM EDT Temperature 36.3 ??C (97.3 ??F) 02/13/2023 8:16 AM ED T Respiratory Rate - - Oxygen Saturation 94% 02/13/2023 8:16 AM EDT Inhaled Oxygen Concentration - - Weight 87.5 kg (193 lb) 02/13/2023 8:16 AM EDT Height 149.9 cm (4' 11 ) 02/04/2023 8:32 AM EDT Body Mass Index 38.98 02/04/2023 8:32 AM EDT Plan of Treatment Health Maintenance Due Date Last Done Comments Hepatitis B Vaccines (1 of 3 - 3-dose series) 1970 Hepatitis C Screening 1970 COVID-19 Vaccine (#1) 01/20/1971 Depression Screening 1982 BMI Counseling 1988 Preventative Health Evaluation 1988 Cervical Cancer Screening (P ap Smear) 1991 Colon Cancer Screening (Colonoscopy) 2015 DTap / Tdap / Td (2 - Td or Tdap) 01/18/2020 010 Breast Cancer Screening (Mammogram) 2020 Shingrix-Zoster Vaccine (1 of 2) 2020 Influenza Vaccine (#1) 2024 02/25/2009 Pneumococcal Vaccine Aged Out No long er eligible based on patient's age to complete this topic RSV Ped < 20 months Aged Out No longe r eligible based on patient's age to complete this topic Care Teams Pci Security Consultant Relationship Specialty Start Date End Date Unknown, PCP - General 02/05/23
--- OUTSIDE RECORDS SUMMARY | 2024-08-13 16:04 | XMS_ITS | Clinical Summary ---
Author Organization [facility] Address [address] [place] [address] Care Team Providers Care Pairer Inspector Name Role Phone Danitza Soto MD Primary Care Provider [phone] Allergies Active Allergy Reactions Criticality Noted Date Comments Lorazepam Other (See Comments) 08/22/2021 Medications Medication Sig Dispensed Refills Start Date End Date Status albuterol (PROVENTIL HFA; VENTOLIN HFA) 108 (90 Base) MCG/ACT inhaler albuterol sulfate HFA 90 mcg/actuation aerosol inhaler TAKE 2 PUFFS BY MOUTH EVERY 4 HOURS NEEDED Active Aspirin Low Dose 81 MG EC tablet Take 81 mg by mouth daily. 08/13/2021 Active carBAMazepine (TEGretol XR) 100 MG 12 hr tablet carbamazepine ER 100 mg tablet,extended release,12 hr Active diclofenac (CATAFLAM) 50 MG tablet diclofenac potassium 50 mg tablet TAKE 1 TABLET BY MOUTH 3 TIMES A DAY FOR 5 DAYS NEEDED FOR PAIN Active gabapentin (NEURONTIN) 100 MG capsule gabapentin 100 mg capsule Active ibuprofen (MOTRIN) 800 mg tablet ibuprofen 800 mg tablet Active PANTOprazole (PROTONIX) 40 MG EC tablet pantoprazole 40 mg tablet,delayed release TAKE 1 TABLET BY MOUTH EVERY DAY Active SUMAtriptan (IMITREX) 100 MG tablet sumatriptan 100 mg tablet TAKE 1 TABLET BY MOUTH AT ONSET OF MIGRAINE, MAY REPEAT IN 2 HOURS, DO NOT EXCEED 2 IN 24 HRS Active traMADol (ULTRAM) 50 MG tablet tramadol 50 mg tablet Active cyclobenzaprine (FLEXERIL) 10 MG tabletIndications :Tendinitis of ankle or foot Take 1 tablet (10 mg total) by mouth 3 times daily (every 8 hours) as needed for muscle spasms. 15 tablet 09/19/2021 Active cephalexin (KEFLEX) 500 MG capsuleIndication s:Acute cystitis without hematuria Take 1 capsule (500 mg total) by mouth 2 (two) times a day. 10 capsule 02/24/2022 Active phenazopyridine (PYRIDIUM) 200 MG tabletIndications :Acute cystitis without hematuria Take 1 tablet (200 mg total) by mouth 3 (three) times a day as needed for bladder spasms. 6 tablet 02/24/2022 Active meloxicam (MOBIC) 15 MG tabletIndications :Bilateral foot pain Take 1 tablet (15 mg total) by mouth daily. 14 tablet 08/08/2023 Active Active Problems No known active problems Social History Tobacco Use Types Packs/Day Years Used Date Smoking Tobacco: Never Assessed Sex and Gender Information Value Date Recorded Sex Assigned at Not on file Gender Identity Not on file Sexual Orientation Not on file Last Filed Vital Signs Vital Sign Reading Time Taken Comments Blood Pressure 125/80 08/08/2023 10:28 AM EST Pulse 81 08/08/2023 10:28 AM EST Temperature 36.1 ??C (96.9 ??F) 08/08/2023 10:[address] Respiratory Rate - - Oxygen Saturation 99% 08/08/2023 10:28 AM EST Inhaled Oxygen Concentration - - Weight - - Height - - Body Mass Index - - Plan of Treatment Health Maintenance Due Date Last Done Comments Hepatitis C Virus Screening 1970 HIV Screening 1983 DTaP/Tdap/Td Vaccines (1 - Tdap) 1989 Hepatitis B Vaccines (1 of 3 - 19+ 3-dose series) 1989 Pap Smear (Ages 21-65) 1991 Mammogram 2010 Colonoscopy 2015 Pneumococcal Vaccines 50+ (1 of 1 - PCV) 2020 Zoster (Shingles) Vaccine (1 of 2) 2020 Influenza Vaccine 01/17/2024 05/19/2010 COVID-19 Vaccine ( - 2023-2 5 season) 2024 Pneumococcal Vaccine: Pediat eda (0-5 Years) and At-Risk Patients (6 to 49 Years) Aged Out No longer eligible b ased on patient's age to complete this topic Care Teams Pairer Inspector Relationship Specialty Start Date End Date Danitza Soto MD [address] [place] [id number] PCP - General Internal Medicine 08/08/23
== END 2024-08-13 14:33 | disposition home or self-care (01) ==
LOC: HO.HOP 13:05
PROVIDERS: PCP Internal Medicine; Visit Provider Counselor Mental Health
DX: F43.23 Adjustment disorder with mixed anxiety and depressed mood (principal)
CPT/HCPCS: 90791

== ENCOUNTER → 2024-09-10 13:12 | Outpatient (AMB) | payer OTHER, SELFPAY ==
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
== END ==
LOC: HO.HBST 13:12
PROVIDERS: PCP Internal Medicine; Visit Provider Counselor Mental Health
DX: F43.23 Adjustment disorder with mixed anxiety and depressed mood (principal)
CPT/HCPCS: 90837

== ENCOUNTER → 2024-09-10 13:12 | Outpatient (BNVA) | payer OTHER, SELFPAY | PROVIDERS: PCP Internal Medicine; Visit Provider Counselor Mental Health ==